=== PATIENT | male | born 1985 | race Caucasian/White ===

== ENCOUNTER 2020-01-15 02:21 | Emergency (ER) | payer OTHER ==
[~2020-01-15] VITALS: Ht 180.3 cm; Wt 74.8 kg
[~2020-01-15 02:21] MED LIST: ADDERALL 30 MG30 MG PO; BUTALB-APAP-CA1 EACH PO; CLONAZEPAM 1 MG1 M1 PO; FLEXERIL PO; NAPROSYN500 MG PO; NORCO 5-325 TA1 EACH PO; PROZAC10 MG PO
[2020-01-15 02:26] VITALS: BP 133/78
[2020-01-15 02:59] LABS: URINE BILIRUBIN NEGATIVE (Negative); URINE BLOOD NEGATIVE (Negative); URINE CLARITY CLEAR; URINE COLOR STRAW; URINE GLUCOSE-RANDOM NEGATIVE (Negative); URINE KETONES NEGATIVE (Negative); URINE LEUKOCYTES-REFLEX NEGATIVE (Negative); URINE NITRITE-REFLEX NEGATIVE (Negative); URINE PROTEIN NEGATIVE (Negative); URINE UROBILINOGEN 0.2 E.U./dl (0.2-1.0)
[2020-01-15 03:07] LABS: AMP/METHAMP POSITIVE (Negative); BARBITURATES Negative (Negative); BENZODIAZEPINES Negative (Negative); COCAINE Negative (Negative); METHADONE Negative (Negative); OPIATES Negative (Negative); PCP Negative (Negative); THC Negative (Negative)
--- NOTE | 2020-01-15 15:00 | EKG ---
[place] [address] ELECTROCARDIOGRAM REPORT Name: LESLEE LOPEZ Room: [facility]#: [id number] Admission: 01/15/20 Attend Phys: Discharge: 01/15/20 Date of : 87 Date of Service: 01/15/20 0229 Report #: [id number] THIS REPORT FOR: //name// [facility] ED Test Date: 2020-01-15 Test Time: 02:29:32 Pat Name: LESLEE LOPEZ Department: Room: Gender: Nut [employer]inder: [place] : 1985 Requested By: Betzy Tse Order Number: [id number] MD: John Daniels Measurements Intervals [place] Rate: 125 P: 0 TX: 112 QRS: 5 QRSD: 93 T: 142 QT: 310 QTc: 447 Interpretive Statements Sinus tachycardia anteroseptal infarct, old cannot be excluded Nonspecific repol abnormality, lateral leads Artifact in lead(s) II,aVR,aVL,V1,V2,V3,V4,V5,V6 No previous ECG available for comparison Electronically Signed On 01-15-2020 15:00:24 CDT by John Daniels [email or web address] <ELECTRONICALLY SIGNED> By: John Daniels MD, FACC 01/15/20 1500 8 8 John Daniels MD, FACC /EPI
== END 2020-01-15 03:10 | disposition left against medical advice (07) ==
LOC: M.ERS 02:21
PROVIDERS: Personal Emergency Response Attendant
DX: R07.89 Other chest pain (principal); F15.129 Other stimulant abuse with intoxication, unspecified; Z91.040 Latex allergy status